=== PATIENT | male | born 1980 | race Caucasian/White ===

== ENCOUNTER 2017-06-01 09:57 | Emergency (ER) | payer SELFPAY ==
[~2017-06-01] VITALS: Ht 177.8 cm; Wt 77.1 kg
[~2017-06-01 09:57] MED LIST: CIPRO500 MG PO; CLINDAMYCIN150 MG PO; HYDROCODONE BIT1 T11 PO; QUALITY CHOICE10 M3 PO
[2017-06-01] MEDS ORDERED: Bactrim DS PO (12:06)
[2017-06-01] MEDS ORDERED: NAPROSYN500 MG PO (12:06)
[2017-06-01] MEDS ORDERED: KEFLEX500 M1 PO (12:06)
== END 2017-06-01 14:12 | disposition home or self-care (01) ==
LOC: ED 09:57
DX: S60.222A Contusion of left hand, initial encounter (principal); R03.0 Elevated blood-pressure reading, without diagnosis of hypertension; F17.200 Nicotine dependence, unspecified, uncomplicated; Z98.890 Other specified postprocedural states; Z79.899 Other long term (current) drug therapy; W23.0XXA Caught, crushed, jammed, or pinched between moving objects, initial encounter; Y93.89 Activity, other specified; Y92.89 Other specified places as the place of occurrence of the external cause; Y99.9 Unspecified external cause status

== ENCOUNTER 2019-03-22 18:29 | Inpatient (IN) | payer SELFPAY ==
[~2019-03-22] VITALS: Ht 180 cm; Wt 77.0 kg
[~2019-03-22 18:29] MED LIST changes: +Bactrim DS PO; +KEFLEX500 M1 PO; +NAPROSYN500 MG PO
[2019-03-22 18:30] VITALS: BP 125/71
[2019-03-22 19:24] LABS: BASO % 0.4 % (0.0-1.0); EOS # 0.1 10*3/uL (0.0-0.4); EOS % 1.1 % (1.0-4.0); HEMATOCRIT 38.5 % (42.0-52.0); HEMOGLOBIN 13.1 g/dl (14.0-18.0); LYMPH # 2.6 10*3/uL (1.3-4.4); LYMPH % 23.5 % (27.0-41.0); MEAN CELL VOLUME 90.2 fl (80.0-94.0); MEAN CORPUSCULAR HGB 30.7 pg (27.0-31.0); MEAN PLATELET VOLUME 11.3 fl (9.6-12.3); MONO # 0.7 10*3/uL (0.1-1.0); MONO % 6.2 % (3.0-9.0); NEUT # 7.6 10*3/uL (2.3-7.9); NEUT % 68.3 % (47.0-73.0); PLATELET COUNT AUTOMATED 167 10*3/uL (130-400); RED BLOOD COUNT 4.27 10*6/uL (4.50-5.90); RED CELL DISTRI WIDTH 13.4 % (0-14.5); WHITE BLOOD COUNT 11.1 10*3/uL (4.8-10.8)
[2019-03-22 19:46] LABS: ALBUMIN 3.2 gm/dl (3.1-4.5); ALKALINE PHOSPHATASE 86 U/L (45-117); BUN 10 mg/dl (7-24); CHLORIDE 105 mmol/L (98-107); CREATININE 0.82 mg/dL (0.70-1.30); LIPASE 57 U/L (73-393); POTASSIUM 3.6 mmol/L (3.5-5.1); SGOT/AST 11 IU/L (3-35); SGPT/ALT 24 U/L (12-78); SODIUM 133 mmol/L (136-145); TOTAL PROTEIN 7.9 gm/dL (6.4-8.2)
[2019-03-22 20:00] VITALS: BP 143/82
[2019-03-22 22:01] VITALS: BP 122/76
[2019-03-23 04:00] VITALS: BP 114/68
[2019-03-23 06:41] LABS: BASO # 0.1 10*3/uL (0.0-0.1); BASO % 0.5 % (0.0-1.0); EOS # 0.3 10*3/uL (0.0-0.4); EOS % 2.8 % (1.0-4.0); HEMATOCRIT 36.7 % (42.0-52.0); HEMOGLOBIN 12.5 g/dl (14.0-18.0); LYMPH # 2.5 10*3/uL (1.3-4.4); LYMPH % 27.5 % (27.0-41.0); MEAN CELL VOLUME 90.8 fl (80.0-94.0); MEAN CORPUSCULAR HGB 30.9 pg (27.0-31.0); MEAN CORPUSCULAR HGB CONC 34.1 g/dl (33.0-37.0); MEAN PLATELET VOLUME 12.1 fl (9.6-12.3); MONO # 0.8 10*3/uL (0.1-1.0); MONO % 8.2 % (3.0-9.0); NEUT # 5.6 10*3/uL (2.3-7.9); NEUT % 60.8 % (47.0-73.0); PLATELET COUNT AUTOMATED 167 10*3/uL (130-400); RED BLOOD COUNT 4.04 10*6/uL (4.50-5.90); RED CELL DISTRI WIDTH 13.3 % (0-14.5); WHITE BLOOD COUNT 9.2 10*3/uL (4.8-10.8)
[2019-03-23 06:59] LABS: ALBUMIN 2.9 gm/dl (3.1-4.5); BUN 11 mg/dl (7-24); CHLORIDE 105 mmol/L (98-107); POTASSIUM 3.7 mmol/L (3.5-5.1); SODIUM 136 mmol/L (136-145)
[2019-03-23 07:04] LABS: ALKALINE PHOSPHATASE 82 U/L (45-117); CHOLESTEROL 114 mg/dL (<200); CREATININE 0.84 mg/dL (0.70-1.30); HDL CHOLESTEROL 29 mg/dl (40-60); LDL CHOLESTEROL 65 mg/dL (9-159); SGOT/AST 11 IU/L (3-35); SGPT/ALT 18 U/L (12-78); TOTAL PROTEIN 7.3 gm/dL (6.4-8.2); TRIGLYCERIDES 99 mg/dl (<150); VLDL CHOLESTEROL 20 mg/dL (6-40)
[2019-03-23 08:00] VITALS: BP 138/80
[2019-03-23 12:00] VITALS: BP 128/77
== END 2019-03-23 13:05 | disposition left against medical advice (07) | DRG 605 ==
LOC: ED 18:29 → EDHOLD 20:49 → 5E 21:12
PROVIDERS: Physician Assistant; Student in an Organized Health Care Education/Training Program; ADMIT Internal Medicine
DX: S60.551A Superficial foreign body of right hand, initial encounter (principal); L03.113 Cellulitis of right upper limb; E87.1 Hypo-osmolality and hyponatremia; F17.210 Nicotine dependence, cigarettes, uncomplicated; F19.90 Other psychoactive substance use, unspecified, uncomplicated; X58.XXXA Exposure to other specified factors, initial encounter; D64.9 Anemia, unspecified; D72.810 Lymphocytopenia; F11.10 Opioid abuse, uncomplicated; R73.9 Hyperglycemia, unspecified; Z83.3 Family history of diabetes mellitus; Z82.3 Family history of stroke; Z71.6 Tobacco abuse counseling; Y93.89 Activity, other specified; Y92.89 Other specified places as the place of occurrence of the external cause; Y99.8 Other external cause status

== ENCOUNTER 2019-07-22 10:58 | Inpatient (IN) | payer MEDICAID ==
[~2019-07-22] VITALS: Ht 177.8 cm; Wt 80.8 kg
[2019-07-22 12:20] VITALS: BP 110/67
--- NOTE | 2019-07-22 12:20 | NUR ---
39 year old MALE admitted to room # 517 for stabilization. 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 Compliant with admission procedure. Patient denies any anxiety, but is unable to sit still, taps toes to floor continuously. See assessment forms for additional information about patient status.
--- NOTE | 2019-07-22 12:28 | NUR ---
PATIENT MEETS [facility]. CINA=19. PATIENT WANTS TO FOLLOW UP WITH [facility] FOR OUTPATIENT TREATMENT. VINH BRYAN B.A. TRUCK UNLOADER
[2019-07-22 13:05] LABS: BASO # 0.1 10*3/uL (0.0-0.1); BASO % 0.6 % (0.0-1.0); EOS # 0.3 10*3/uL (0.0-0.4); EOS % 2.1 % (1.0-4.0); HEMATOCRIT 46.1 % (42.0-52.0); HEMOGLOBIN 15.3 g/dl (14.0-18.0); LYMPH # 2.2 10*3/uL (1.3-4.4); LYMPH % 18.4 % (27.0-41.0); MEAN CELL VOLUME 92.9 fl (80.0-94.0); MEAN CORPUSCULAR HGB 30.8 pg (27.0-31.0); MEAN CORPUSCULAR HGB CONC 33.2 g/dl (33.0-37.0); MEAN PLATELET VOLUME 11.5 fl (9.6-12.3); MONO # 0.6 10*3/uL (0.1-1.0); MONO % 4.8 % (3.0-9.0); NEUT # 8.6 10*3/uL (2.3-7.9); NEUT % 73.6 % (47.0-73.0); PLATELET COUNT AUTOMATED 209 10*3/uL (130-400); RED BLOOD COUNT 4.96 10*6/uL (4.50-5.90); RED CELL DISTRI WIDTH 13.7 % (0-14.5); WHITE BLOOD COUNT 11.7 10*3/uL (4.8-10.8)
[2019-07-22 13:33] LABS: ALBUMIN 3.8 gm/dl (3.1-4.5); ALKALINE PHOSPHATASE 109 U/L (45-117); BUN 10 mg/dl (7-24); CHLORIDE 104 mmol/L (98-107); SGOT/AST 23 IU/L (3-35); SGPT/ALT 37 U/L (12-78); SODIUM 136 mmol/L (136-145); TOTAL PROTEIN 9.1 gm/dL (6.4-8.2)
[2019-07-22 13:38] LABS: ETHYL ALCOHOL < 3.0 mg/dl (<3)
[2019-07-22 14:07] LABS: URINE AMPHETAMINES < 1000 (1000ng/ml); URINE BARBITURATES < 200 (200ng/ml); URINE BENZODIAZEPINES < 200 (200ng/ml); URINE CANNABINOIDS (THC) < 50 (50ng/ml); URINE COCAINE < 300 (300ng/ml); URINE METHADONE < 300 (300ng/ml); URINE OPIATES < 300 (300ng/ml)
[2019-07-22 14:18] LABS: URINE PHENCYCLIDINE < 25 (25ng/ml)
[2019-07-22 14:33] LABS: BILIRUBIN NEGATIVE (NEGATIVE); BLOOD NEGATIVE (NEGATIVE); CLARITY CLEAR (CLEAR); COLOR YELLOW (YELLOW); GLUCOSE NEGATIVE (NEGATIVE); KETONE NEGATIVE (NEGATIVE); LEUKO ESTERASE NEGATIVE (NEGATIVE); NITRITE NEGATIVE (NEGATIVE); PH 6.5 (5.0-9.0); SPECIFIC GRAVITY <= 1.005 (1.005-1.030); UROBILINOGEN 0.2 E.U./dl (0.2-1.0)
[2019-07-22 14:42] LABS: BACTERIA TRACE; EPITHELIAL CELLS 0-2; RBC 0-2 rbc/hpf (0-2); WBC 0-2 wbc/hpf (0-5)
[2019-07-22 16:00] VITALS: BP 117/63
[2019-07-22 20:00] VITALS: BP 120/69
--- NOTE | 2019-07-22 21:05 | NUR ---
24 HR chart check completed.
--- NOTE | 2019-07-22 22:06 | NUR ---
Patient displaying withdrawal symptoms, including: irritability, anxiousness, restlessness and agitation. Scheduled/PRN medications provided, SEE EMAR. Will continue to monitor medication effectiveness.
[2019-07-23] VITALS: BP 132/79
--- NOTE | 2019-07-23 | NUR ---
Patient resting. Responding to scheduled medications with fewer complaints of pain and anxiety.
--- NOTE | 2019-07-23 02:00 | NUR ---
Patient displaying withdrawal symptoms, including: irritability, anxiousness, restlessness and agitation. Scheduled medications provided, SEE EMAR. Will continue to monitor medication effectiveness.
--- NOTE | 2019-07-23 06:00 | NUR ---
Patient resting. Responding to scheduled medications with fewer complaints of pain and anxiety.
[2019-07-23 08:00] VITALS: BP 109/71
--- NOTE | 2019-07-23 15:38 | NUR ---
PATIENT HAS A SCHEDULED APPOINTMENT AT [facility] ON July AT 9:30AM FOR OUTPATIENT COUNSELING. PATIENT AGREES AND UNDERSTANDS HIS AFTERCARE PLAN. VINH BRYAN B.A. GARBAGE TRUCK HELPER
[2019-07-23 16:00] VITALS: BP 111/65
--- NOTE | 2019-07-23 19:31 | NUR ---
24 HR chart check completed.
[2019-07-23 20:00] VITALS: BP 133/72
--- NOTE | 2019-07-23 20:00 | NUR ---
Patient resting, WATCHING TV. Responding to scheduled medications with fewer complaints of pain and anxiety. CALL LIGHT WITHIN REACH. NO VOICED COMPLAINTS
[2019-07-24] VITALS: BP 130/74
--- NOTE | 2019-07-24 | NUR ---
Patient resting. Responding to scheduled medications with fewer complaints of pain and anxiety.
--- NOTE | 2019-07-24 05:57 | NUR ---
AMBULATING HALLWAY WITH NO DISTRESS NOTED.
--- NOTE | 2019-07-24 06:05 | NUR ---
SLEPT THROUGHOUT NIGHT WITH NO ACUTE DISTRESS NOTED. ROUTINE MEDS PROVIDED THIS AM TO ASSIST WITH WITHDRAWAL S/S. CALL LIGHT WITHIN REACH. NO VOICED COMPLAINTS THIS SHIFT
[2019-07-24 08:00] VITALS: BP 99/60
--- NOTE | 2019-07-24 08:41 | NUR ---
Patient resting. Responding to scheduled medications with fewer complaints of pain and anxiety.
--- NOTE | 2019-07-24 11:51 | NUR ---
PT GIVEN PO ROBAXIN, REQUIP AND VISTARIL PER PRN ORDER FOR C/O MUSCLE ACHES, RESTLESS LEGS AND ANXIETY. WILL MONITOR EFFECTIVENESS.
--- NOTE | 2019-07-24 12:45 | NUR ---
PATIENT REQUESTING TO BE DISCHARGED EARLY DUE TO COURT HEARING TOMORROW AT 9AM. MADE AWARE AND STATES PATIENT WILL BE DISCHARGED TOMORROW MORNING ON TIME FOR SCHEDULED APT.
--- NOTE | 2019-07-24 14:00 | NUR ---
Patient resting. Responding to scheduled medications with fewer complaints of pain and anxiety.
[2019-07-24 16:00] VITALS: BP 115/65
--- NOTE | 2019-07-24 17:31 | NUR ---
PT COMPLAIN OF RESTLESSNESS AND ANXIETY, PRN GIVEN. PT STATES NO OTHER NEEDS AT THIS TIME
--- NOTE | 2019-07-24 19:30 | NUR ---
TOOK OVER CARE OF PT. PT IS UP WALKING THROUGHOUT HALLS AND STATES THAT HE HAS NO COMPLAINTS AT THIS TIME. NO S/S OF DISTRESS ARE NOTED. RESPIRATIONS ARE UNALBORED. WILL MONITOR.
[2019-07-24 20:00] VITALS: BP 117/61
--- NOTE | 2019-07-24 20:30 | NUR ---
DR AYOUB NOTIFIED THAT PT IS CONCERNED REGARDING BEING DISCHARGED IN THE MORNING BEFORE HIS COURT TIME AT 0900. PHYSICIAN STATES THAT HE WILL LOOK INTO IT. PT NOTIFIED.
--- NOTE | 2019-07-24 21:42 | NUR ---
PT GIVEN TRAZODONE AT THIS TIME FOR C/O INSOMNIA/RESTLESSNESS. PT ADVISED TO LET THIS NURSE KNOW IF MEDICATION IS NOT EFFECTIVE WITHIN 30 MINUTES, A SECOND DOSE CAN BE OFFERED PER PRN ORDER ON EMAR. WILL CONTINUE TO MONITOR. CALL LIGHT IN REACH.
--- NOTE | 2019-07-24 22:42 | NUR ---
TRAZODONE EFFECTIVE. PT SLEEPING IN ROOM AT THIS TIME.
[2019-07-25] VITALS: BP 105/62
--- NOTE | 2019-07-25 | NUR ---
PT RESTING IN BED. NO S/S OF DISTRESS. RESPIRATIONS EASY AND UNLABORED ON ROOM AIR. CALL LIGHT IN REACH.
--- NOTE | 2019-07-25 02:27 | NUR ---
24 HR chart check completed.
[2019-07-25 08:00] VITALS: BP 95/60
--- NOTE | 2019-07-25 08:18 | NUR ---
DR. HO AWARE PATIENT ANXIOUS WANTING TO LEAVE FOR COURT TIME TODAY AT 0900.
--- NOTE | 2019-07-25 08:55 | NUR ---
PATIENT DISCHARGE TO HOME.
== END 2019-07-25 08:55 | disposition home or self-care (01) | DRG 897 ==
LOC: 5E 10:58
PROVIDERS: Registered Nurse; ADMIT Internal Medicine
DX: F11.23 Opioid dependence with withdrawal (principal); D72.829 Elevated white blood cell count, unspecified; F17.210 Nicotine dependence, cigarettes, uncomplicated; R00.0 Tachycardia, unspecified; R73.9 Hyperglycemia, unspecified; Z71.6 Tobacco abuse counseling; Z82.3 Family history of stroke; Z83.79 Family history of other diseases of the digestive system; Z83.3 Family history of diabetes mellitus